=== PATIENT | female | born 1995 | race Two or more races ===

== ENCOUNTER 2021-02-23 17:02 | Emergency (ER) | payer SELFPAY ==
[~2021-02-23] VITALS: Ht 162.6 cm; Wt 68.9 kg
[2021-02-23] MEDS ORDERED: IBUP-23 PO (18:19)
--- NOTE | 2021-02-23 19:11 | NUR ---
No acute change in condition seen, pending available ER room and nurse. Patient is sitting comfortably in the ER waiting room. SBAR to inspector golf ball Albert.
[2021-02-23 19:22] LABS: *URINE HCG, QUAL NEGATIVE (NEGATIVE)
--- NOTE | 2021-02-23 19:37 | NUR ---
Pt not in waiting room.
--- NOTE | 2021-02-23 20:30 | NUR ---
pt amb to room 2a denies dizziness blurred vision, cp or sob.
[2021-02-23] MEDS ORDERED: ONDA4TAB5 PO (20:43)
[2021-02-23] MEDS ORDERED: HYDR-4209 PO (20:43)
--- NOTE | 2021-02-23 21:12 | NUR ---
Patient discharged to home in stable condition. Written and verbal after care instructions given. Patient verbalizes understanding of instructions. Stressed follow up or return to ER for worsening s/s. pt amb denies h/a or dizziness.
[2021-02-23 21:13] VITALS: BP 135/60
== END 2021-02-23 21:14 | disposition home or self-care (01) ==
LOC: EDBD 17:05 → ER 17:05
DX: R51.9 Headache, unspecified (principal); F17.210 Nicotine dependence, cigarettes, uncomplicated
CPT/HCPCS: 84703; A4663